=== PATIENT | female | born 1960 | race Caucasian/White ===

== ENCOUNTER → 2017-03-21 | Outpatient (CLI) | payer BC ==
--- NOTE | 2017-03-21 11:26 | RADRPT ---
PROCEDURE: US left lower extremity veins. CLINICAL INDICATION: Left leg pain and swelling. TECHNIQUE: Multiple longitudinal and transverse images of the left lower extremity veins were obta ined with lara scale and color Doppler imaging. The common femoral vein, femoral vein, and popliteal vein were evaluated. 2D grayscale measurements with compression sonography, pulsed Doppler, color D oppler, and pulsed Doppler with augmentation. COMPARISON: No prior studies are available for comparison. FINDINGS: The left common femoral, femoral and popliteal veins are normally compressible throughout. Color fl ow demonstrates normal filling of the vessels. Normal waveforms are visualized and there is normal response to augmentation. The left posterior tibial vein and peroneal vein were also visualized in t he calf and appear normal. IMPRESSION: 1. No evidence of deep vein thrombosis involving the left lower extremity. RPTAT: QQ .John Paul Bray MD, MD Date Time Electronically viewed and signed by .John Paul Bray MD, MD on 03/21/2017 11:26 .R/
[2017-03-21 14:07] LABS: BASOPHILS % 0.8 % (0.0-2.0); EOSINOPHILS # 0.1 10^3/ul (0.0-0.5); HEMATOCRIT 38.3 % (37.0-47.0); HEMOGLOBIN 12.6 g/dl (12.0-16.0); LYMPHOCYTES # 1.6 10^3/ul (0.8-2.9); LYMPHOCYTES % 31.2 % (15.0-51.0); MEAN CORPUSCULAR HEMOGLOBIN 30.4 pg (29.0-33.0); MEAN CORPUSCULAR HGB CONC 32.9 g/dl (32.0-37.0); MEAN CORPUSCULAR VOLUME 92.3 fl (82.0-101.0); MEAN PLATELET VOLUME 11.2 fl (7.4-10.4); MONOCYTE # 0.5 10^3/ul (0.3-0.9); MONOCYTES % 9.4 % (0.0-11.0); NEUTROPHIL # 2.9 10^3/ul (1.6-7.5); NEUTROPHILS % 56.4 % (39.0-77.0); PLATELET COUNT 213 10^3/UL (140-415); RED BLOOD COUNT 4.15 10^6/ul (4.20-5.40); RED CELL DISTRIBUTION WIDTH 12.5 % (11.5-14.5); WHITE BLOOD COUNT 5.1 10^3/ul (4.8-10.8)
[2017-03-21 14:29] LABS: ALBUMIN 4.7 g/dl (3.3-4.9); ALBUMIN/GLOBULIN RATIO 1.56; BILIRUBIN,INDIRECT 0.9 mg/dl (0-1.1); BILIRUBIN,TOTAL 0.9 mg/dl (0.2-1.3); CALCIUM 9.7 mg/dl (8.4-10.2); CREATININE 0.88 mg/dl (0.44-1.00); POTASSIUM 4.7 mmol/L (3.5-5.1); TOTAL PROTEIN 7.7 g/dl (6.1-8.1)
[2017-03-21 15:02] LABS: D-DIMER 255.48 ng/ml (<460)
== END | disposition home or self-care (01) ==
LOC: VAS 10:56
PROVIDERS: ATTEND Internal Medicine
DX: R60.0 Localized edema (principal)
CPT/HCPCS: 80053; 85025; 85378; 93971

== ENCOUNTER 2018-10-22 08:54 | Emergency (ER) | payer BC ==
[~2018-10-22] VITALS: Wt 68.0 kg
[2018-10-22] MEDS ORDERED: ASPIRIN 325 MG TAB PO STA (08:55)
[2018-10-22 09:12] VITALS: BP 115/76; PULSE 65; RESP 18
[2018-10-22] MEDS ORDERED: NAPROXEN 500 MG TAB PO ONE (09:30)
[2018-10-22] MEDS ORDERED: ALPR0.25 PO (10:12)
--- NOTE | 2018-10-22 10:40 | ERD ---
ER Documentation Chief Complaint Chief Complaint left arm pain for the past 3 days. no sob no nausea no vomitng HPI Patient is a 57-year-old female with no medical problems who presents with chest pain. She describes a left-sided chest pressure which started on Sunday. She has radiation of the pain down her left arm. The pain is been constant. She tried ibuprofen without much relief. 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 ROS All systems reviewed and are negative except as per history of present illness. Medications Home Meds Active Scripts Alprazolam* (Xanax*) 0.25 Mg Tablet, 0.25 MG PO Q8H PRN for ANXIETY, #10 TAB Prov:NITESH HUANG MD 10/22/18 PMhx/Soc Medical and Surgical Hx: pt denies Medical Hx, pt denies Surgical Hx Hx Alcohol Use: No Hx Substance Use: No Hx Tobacco Use: No Smoking Status: Never smoker FmHx Family History: No coronary disease Physical Exam Vitals Vital Signs Date Temp Pulse Resp B/P (MAP) Pulse Ox O2 O2 Flow FiO2 Time Delivery Rate 10/22/18 98.2 65 18 115/76 100 09:12 (89) Physical Exam Const: No acute distress Head: Atraumatic Eyes: Normal Conjunctiva ENT: Normal External Ears, Nose and Mouth. Neck: Full range of motion. No meningismus. Resp: Clear to auscultation bilaterally Cardio: Regular rate and rhythm, no murmurs Abd: Soft, non tender, non distended. Normal bowel sounds Skin: No petechiae or rashes Back: No midline or flank tenderness Ext: No cyanosis, or edema Neur: Awake and alert Psych: Normal Mood and Affect Result Diagram: 10/22/1890410/22/18904 Results 24 hrs Laboratory Tests Test 10/22/18 09:05 White Blood Count 3.9 10^3/ul Red Blood Count 3.99 10^6/ul Hemoglobin 12.1 g/dl Hematocrit 37.2 % Mean Corpuscular Volume 93.2 fl Mean Corpuscular Hemoglobin 30.3 pg Mean Corpuscular Hemoglobin Concent 32.5 g/dl Red Cell Distribution Width 12.3 % Platelet Count 181 10^3/UL Mean Platelet Volume 11.0 fl Immature Granulocytes % 0.500 % Neutrophils % 48.3 % Lymphocytes % 40.1 % Monocytes % 7.6 % Eosinophils % 2.5 % Basophils % 1.0 % Nucleated Red Blood Cells % 0.0 /100WBC Immature Granulocytes # 0.020 10^3/ul Neutrophils # 1.9 10^3/ul Lymphocytes # 1.6 10^3/ul Monocytes # 0.3 10^3/ul Eosinophils # 0.1 10^3/ul Basophils # 0.0 10^3/ul Nucleated Red Blood Cells # 0.0 10^3/ul Sodium Level 141 mmol/L Potassium Level 4.0 mmol/L Chloride Level 106 mmol/L Carbon Dioxide Level 26 mmol/L Anion Gap 9 Blood Urea Nitrogen 14 mg/dl Creatinine 0.73 mg/dl Est Glomerular Filtrat Rate mL/min > 60 mL/min Glucose Level 116 mg/dl Calcium Level 9.4 mg/dl Troponin I < 0.012 ng/ml Current Medications Medications Dose Sig/Chidi Start Time Status Last (Trade) Ordered Route PRN Stop Time Admin Dose Reason Admin Aspirin 325 mg ONCE STAT 10/22/18 DC (Aspirin) PO 08:55 10/22/18 08:56 Naproxen 500 mg ONCE ONCE 10/22/18 DC (Naprosyn) PO 09:30 10/22/18 09:31 Procedures/MDM EKG read by me: Rate/Rhythm: Regular rate and rhythm at a normal rate Intervals: Normal Impression: No evidence of ischemia or arrhythmia Chest x-ray negative per radiology. Patient is a 57-year-old female with no medical problems who presents with chest pain. I was concerned about the quality of her chest pain which she describes as pressure-like pain that radiates down her left arm. Her EKG and chest x-ray are normal. Initial troponin is negative. However given her age and symptoms I did want to admit her to the hospital for cardiac workup to rule out acute coronary syndrome. She is adamant however that she does not want to be admitted to the hospital. She can get close follow-up with her primary doctor and it may be reasonable to discharge her at this time although I did prefer to admit her. I doubt pneumonia, pneumothorax, pulmonary embolism, or aortic dissection. I told the patient she can return for any worsening symptoms or if she would like to be admitted. Departure Diagnosis: Primary Impression: Chest pain Chest pain type: unspecified Qualified Codes: R07.9 - Chest pain, unspecified Condition: Fair Patient Instructions: Chest Pain, Uncertain Cause Referrals: Your primary doctor Additional Instructions: Call your primary care doctor TOMORROW for an appointment during the next 1-2 days.See the doctor sooner or return here if your condition worsens before your appointment time. NITESH HUANG MD Oct 22, 2018 10:40
== END 2018-10-22 10:55 | disposition home or self-care (01) ==
LOC: EEVIPCON 08:54 → E/R 08:54
DX: R07.9 Chest pain, unspecified (principal)
CPT/HCPCS: 71045; 80048; 84484; 85025; 93005

== ENCOUNTER → 2019-04-01 | Outpatient (CLI) | payer BC ==
[~2019-04-01] MED LIST: ALPR0.25 PO
== END | disposition home or self-care (01) ==
LOC: C/S 08:00
PROVIDERS: ATTEND Internal Medicine
DX: E78.5 Hyperlipidemia, unspecified (principal)